=== PATIENT | male | born 1930 | race Caucasian/White ===

== ENCOUNTER → 2016-11-14 | Outpatient (CLI) | payer OTHER ==
[~2016-11-14] MED LIST: ALTACE10 M1 PO; ASCRIPTIN 325325 MG PO; CENTRUM SILVER1 EAC1; FISHOIL; FLEXERIL PO; MUCINEX DM TABL1 TA1 PO; NEW CHOLESTEROL MED; NORCO 7.5-3251 EACH PO; TAMSULOSIN HCL0.4 MG PO; ZOCOR 10 MG TAB10 MG PO
== END ==
LOC: MRI 16:15
DX: M47.892 Other spondylosis, cervical region (principal); M54.2 Cervicalgia

== ENCOUNTER → 2016-11-21 | Outpatient (CLI) | payer OTHER ==
[~2016-11-21] VITALS: Ht 177.8 cm; Wt 84.4 kg
[~2016-11-21] MED LIST changes: +ASPIR 8181 MG PO; +PLAVIX 75 MG TA75 M1 PO; +TRAMADOL 50 MG50 MG PO
--- NOTE | ~2016-11-21 | HPC ---
[facility] [address] [address] PAIN MANAGEMENT CONSULTATION Name: GWEN ADLER Room #: REG [facility] Gamb[facility]alitaVíctorLalita#: [id number] Admission: 11/21/16 Attend Phys: Mellissa Arroyo MD Discharge: Date of : 32 Report #: [id number] THIS REPORT FOR: //name// CC: Mellissa Mckeon MD DATE OF SERVICE: 11/21/2016 DATE OF SERVICE: 11/21/2016. PRIMARY CARE PHYSICIAN: Andre Mckeon MD CHIEF COMPLAINT: Severe neck pain with decreased ability to move the neck over the last few months. HISTORY OF PRESENT ILLNESS: The patient is an 86-year-old gentleman who has been referred to the pain clinic for evaluation of neck pain. The patient states that he has been having pain and discomfort, which has been quite problematic and limits his movement of his neck since June of this year. He has noted a significant decrease in range of motion. He denies any significant trauma. He just notes that over a period since June that his pain has becomes more problematic, range of motion of his neck has become almost nonexistent. He describes the pain worse with movement. Pain is better when he takes pain pills. He rates the pain as a 9/10. He has undergone physical therapy. He has not gleaned a significant amount of improvement in his range of motion and pain continues to live in him to a great extent. He notes pain and difficulty with lifting his head to look up above his head. He is able to look down. Left and right lateral bending, left and right lateral rotation are quite problematic. He has not had surgery in the past. He finds that tramadol has been somewhat beneficial. ALLERGIES: No known drug allergies. MEDICATIONS: Aspirin 81 mg, Plavix 75 mg daily, Mucinex, Zocor 10 mg, fish oil, multivitamin, Centrum, calcium tablet, Flomax 0.4 mg, and Altace 10 mg. PAST MEDICAL HISTORY: Coronary artery disease and peripheral vascular disease. PAST SURGICAL HISTORY: Coronary artery bypass grafting 1979 , crush injury to the right hand, skin cancer excision. FAMILY HISTORY: Mother of stroke. Father with coronary artery disease. Sister, colon cancer, leukemia, had a carotid endarterectomy. Brother, coronary artery disease. [address] [address] PAIN MANAGEMENT CONSULTATION Name: GWEN ADLER Room #: REG [facility]#: [id number] Admission: 11/21/16 Attend Phys: Mellissa Arroyo MD Discharge: Date of : 32 Report #: [id number] SOCIAL HISTORY: Former smoker, stopped in 1996. Denies use of alcohol. REVIEW OF SYSTEMS: A 14-point review of systems questionnaire in the chart indicates he wears glasses, ringing in the ears/hearing loss, shortness of breath with walking, chronic frequent coughs, frequent urination, generally good health. DIAGNOSTIC DATA: MRI of the cervical spine dated 11/14/2016, reveals: 1. Diffuse cervical spondylosis. 2. Disk osteophyte formation, particularly in the left, narrowing and neural foraminal narrowing. 3. 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 4. 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 5. The canal at C4-C5 and C3-C4 at the lower limits of normal. 6. Mild spinal stenosis at C5-C6. 7. Significant bilateral neural foraminal narrowing seen at C5-C6 and C6-C7. 8. Mild subluxation of T1 on T2. PHYSICAL EXAMINATION: VITAL SIGNS: Blood pressure 151/62, pulse 80, respiratory rate 16, room air saturation is 98%. Height 5 feet 10 inches, weight 84 kilograms, and BMI is 26.7. NECK: The patient complains of pain and discomfort in the neck area. He sits in the chair looking straight forward. There is very little rotation or movement of his neck during the interview. Left lateral bending and right lateral bending are almost nonexistent. Left lateral rotation and right lateral rotation are limited to about 15 degrees, left or right. The patient is able to look down into his lap. He is unable to extend his neck and look skyward. He complains of significant pain and discomfort while sitting and with any significant motion of his neck. DIAGNOSES: 1. Cervicalgia with severe spondylosis. 2. Coronary artery disease, treated with Plavix. 3. Peripheral vascular disease. RECOMMENDATIONS: We discussed treatment options with the patient. We will proceed with . Risks and benefits of a cervical epidural steroid injection were discussed. Possible complications were reviewed. The patient is on Plavix. He will hold his Plavix at which time he will return to the pain clinic for cervical epidural steroid injection to note its benefits. We would like to thank you for letting us participate in his care. We hope that [address] [address] PAIN MANAGEMENT CONSULTATION Name: GWEN ADLER [facility]: [facility] [id number] Admission: 11/21/16 Attend Phys: Mellissa Arroyo MD Discharge: Date of : 32 Report #: [id number] he continues to improve from his intractable neck pain, which has significantly and severely altered his ability to engage in activities of daily living. By: [id number] Mellissa Arroyo MD /nt
[2016-11-21 08:40] VITALS: BP 151/62
== END | disposition home or self-care (01) ==
LOC: PAIN 06:32
DX: I25.10 Atherosclerotic heart disease of native coronary artery without angina pectoris (principal); I73.9 Peripheral vascular disease, unspecified; Z95.1 Presence of aortocoronary bypass graft; Z85.828 Personal history of other malignant neoplasm of skin; Z82.49 Family history of ischemic heart disease and other diseases of the circulatory system; Z80.0 Family history of malignant neoplasm of digestive organs; Z87.891 Personal history of nicotine dependence; M47.892 Other spondylosis, cervical region; M25.70 Osteophyte, unspecified joint; M48.02 Spinal stenosis, cervical region

== ENCOUNTER → 2016-11-26 | Outpatient (CLI) | payer OTHER ==
[~2016-11-26] VITALS: Ht 177.8 cm; Wt 85.4 kg
--- NOTE | ~2016-11-26 | H ---
[facility] [place] [place] [address] HISTORY AND PHYSICAL Name: GWEN ADLER Room #: [facility] [id number] Admission: 11/26/16 Attend Phys: Mellissa Arroyo MD Discharge: Date of : 32 Report #: [id number] THIS REPORT FOR: //name// CC: Mellissa Mckeon MD DATE OF SERVICE: 11/26/2016 FOLLOWUP COMPLAINT: Pain in the neck with significant/elizabeth reduction of movement with spondylosis. FOLLOWUP HISTORY: The patient is an 86-year-old gentleman who has been seen in the pain clinic because of severe neck pain. He has very limited movement of his neck with flexion, extension, left and right lateral rotation, left and right lateral bending. This pain has worsened since June of this year. He has undergone physical therapy and continues to have pain, which limits his ability to engage and enjoy life. He has returned today for a cervical epidural steroid injection. He has stopped taking Plavix. He has returned for the procedure. PHYSICAL EXAMINATION: Blood pressure 117/71, pulse 83, respiratory rate 16, room air saturation 98%, height 5 feet 10 inches, weight 85 kg, and BMI is 27. The patient has not fallen since we saw him last. He continues to have pain and discomfort in his neck with significant decreased movement in his neck with pain in the neck with left and right lateral rotation of greater than 15-20 degrees. Cervical extension is nonexistent. Left and right lateral bending is nonexistent. IMPRESSION: Cervical spondylosis with severe cervicalgia. RECOMMENDATION: We again reviewed the patient's history. Risks and benefits of a cervical epidural steroid injection were discussed. Possible complications, which are not limited to infection, increased muscle soreness, worsening of pain, improvement in pain, and bleeding were explained and the patient elects to proceed. PROCEDURE NOTE: The patient was placed in the prone position. Fluoroscopy was used to identify the C7-T1 interspace. This area had been sterilely prepped with Betadine and infiltrated with 0.25% bupivacaine. A total of 120 mg triamcinolone was injected. The patient tolerated the procedure well. He remained in the pain clinic for an appropriate amount of time. He describes his pain as 1-2 at the time of discharge. A total of 20 seconds fluoroscopy time was used. [address] [address] HISTORY AND PHYSICAL Name: GWEN ADLER Room #: REG [facility]#: [id number] Admission: 11/26/16 Attend Phys: Mellissa Arroyo MD Discharge: Date of : 32 Report #: [id number] We would like to thank you for letting us participate in his care. We hope he continues to improve. By: [id number] Mellissa Arroyo MD /nt
[2016-11-26 10:27] VITALS: BP 117/71
== END ==
LOC: PAIN 06:58
DX: M47.22 Other spondylosis with radiculopathy, cervical region (principal); I10 Essential (primary) hypertension

== ENCOUNTER → 2017-01-23 | Outpatient (CLI) | payer OTHER ==
[~2017-01-23] VITALS: Ht 172.7 cm; Wt 84.4 kg
--- NOTE | ~2017-01-23 | HPC ---
[facility] [address] [place] [address] PAIN MANAGEMENT CONSULTATION Name: GWEN ADLER [facility] #: [facility] [id number] Admission: 01/23/17 Attend Phys: Mellissa Arroyo MD Discharge: Date of : 32 Report #: [id number] THIS REPORT FOR: //name// CC: Mellsisa Mckeon MD DATE OF SERVICE: 01/23/2017 FOLLOWUP COMPLAINT: The pain improved after the last injection in the neck by greater than 50% and now it is starting again. FOLLOWUP HISTORY: The patient is an 86-year-old gentleman who has been seen in the pain clinic because of cervical radiculopathy. He gleaned greater than 50% improvement after the first epidural steroid injection. At this juncture, he has noted some worsening of his pain and discomfort. He notes continued limited movement in his neck. Flexion, extension, left and right lateral rotation, left and right lateral bending are still quite problematic. He has undergone physical therapy. He is on Plavix and has stopped this medication with hope of undergoing an epidural steroid injection. PHYSICAL EXAMINATION: Blood pressure 135/57, pulse 88, respiratory rate 15, room air saturation 98%. Height 5 feet 8 inches tall, weight 186 pounds, BMI 28.3. The patient has discomfort and limited movement in his neck with flexion, extension, left and right lateral rotation, left and right lateral bending. He does note some pain radiating down into the shoulders. This pain improved after the last epidural steroid injection. IMPRESSION: Cervical spondylosis with severe cervicalgia with pain radiating down into the shoulders. RECOMMENDATION: The patient received greater than 50% improvement in the cervical epidural steroid injection. He would like to proceed with a second cervical epidural steroid injection. He will stop his Plavix after which a cervical epidural steroid injection will be performed because of the cervical radicular discomfort. We would like to thank you for letting us participate in his care. We hope he continues to improve. <ELECTRONICALLY SIGNED> By: Mellissa Arroyo MD 01/28/17 0845 [id number] Mellissa Arroyo MD /nt
[2017-01-23 09:31] VITALS: BP 135/57
== END | disposition home or self-care (01) ==
LOC: PAIN 07:15
DX: M47.892 Other spondylosis, cervical region (principal); Z88.8 Allergy status to other drugs, medicaments and biological substances; Z79.82 Long term (current) use of aspirin; Z79.899 Other long term (current) drug therapy

== ENCOUNTER → 2017-02-11 | Outpatient (CLI) | payer OTHER | END | disposition home or self-care (01) | LOC: PAIN 07:09 | DX: M47.22 Other spondylosis with radiculopathy, cervical region (principal) ==

== ENCOUNTER → 2017-02-20 | Outpatient (CLI) | payer OTHER ==
[2017-02-20 10:29] LABS: CREATININE 1.1 mg/dL (0.7-1.3)
== END ==
LOC: CAT 09:37
PROVIDERS: Internal Medicine Cardiovascular Disease
DX: I73.9 Peripheral vascular disease, unspecified (principal); I71.4 Abdominal aortic aneurysm, without rupture

== ENCOUNTER → 2017-03-10 | Outpatient (CLI) | payer OTHER ==
--- NOTE | ~2017-03-10 | 2DMMODE ---
[facility] [place] [address] 2 D/M-MODE ECHOCARDIOGRAM Name: GWEN ADLER Room #: REG [facility]#: [id number] Admission: 03/10/17 Attend Phys: Abran Murrell, Discharge: Date of : 32 Date of Service: 03/10/17 1718 Report #: [id number] THIS REPORT FOR: //name// APPROVED REPORT Study performed: 03/10/2017 10:41:31 EXAM: Comprehensive 2D, Doppler, and color-flow Echocardiogram Patient Location: Out-Patient BSA: 1.99 HR: 78 bpm BP: 138/78 mmHg Rhythm: NSR Other Information Study Quality: Adequate Indications Pre-Op. Murmur. Hx: CABG, PVD, HTN 2D Dimensions RVDd: 36.52 mm LVEF(%): 61.03 (>50%) IVSd: 11.29 (7-11mm) LVOT Diam: 21.68 (18-24mm) LVDd: 41.18 mm PWd: 10.70 (7-11mm) Ascending Ao: 33.31 (22-36mm) LVDs: 27.87 (25-40mm) Aortic Root: 34.81 mm Mccoy's LVEF: 61.03 % Volumes Left Atrial Volume (Systole) Single Plane 4CH: 46.19 mL Single Plane 2CH: 46.18 mL LA ESV Index: 25.00 mL/m2 Aortic Valve AoV Peak Eligio.: 3.22 m/s AO Peak Gr.: 41.42 mmHg LVOT Max P.04 mmHg AO Mean Gr.: 25.46 mmHg AO V2 Mean: 2.44 m/s LVOT Max V: 1.00 m/s AO V2 VTI: 68.46 cm LUIS DANIEL Vmax: 1.15 cm2 AI Vmax: 4.09 m/s AI Oldham: 3.13 m/s2 AI PHT: 379.83 ms [facility] [place] [address] 2 D/M-MODE ECHOCARDIOGRAM Name: GWEN ADLER Room #: [facility]#: [id number] Admission: 03/10/17 Attend Phys: Abran Murrell, Discharge: Date of : 32 Date of Service: 03/10/17 1718 Report #: [id number] Mitral Valve E/A Ratio: 0.9 MV Decel. Time: 183.55 ms MV E Max Eligio.: 0.73 m/s MV A Eligio.: 0.81 m/s MV PHT: 53.23 ms IVRT: 76.12 ms Pulmonary Valve PV Peak Eligio.: 1.22 m/s PV Peak Gr.: 5.97 mmHg Pulmonary Vein P Vein S: 0.62 m/s P Vein D: 0.45 m/s P Vein S/D Ratio: 1.38 Tricuspid Valve TR Peak Eligio.: 2.66 m/s RAP Estimate: 5.00 mmHg TR Peak Gr.: 28.20 mmHg PA Pressure: 33.00 mmHg Left Ventricle The left ventricle is normal size. There is normal LV segmental wall motion. There is normal left ventricular wall thickness. Left ventricular systolic function is normal. LVEF is 60-65%. Mild diastolic dysfunction is present (impaired relaxation pattern). Right Ventricle The right ventricle is normal size. The right ventricular systolic function is normal. Atria The left atrium size is normal. The right atrium size is normal. Aortic Valve Aortic valve is moderately thickened and calcified. Mild aortic regurgitation. There is moderate valvular aortic stenosis. Calculated aortic valve area is 1.2 cm2 with maximum pressure gradient of 41mmHg and mean pressure gradient of 25 mmHg. Mitral Valve The mitral valve is normal in structure. Trace mitral regurgitation. [place] [id number] 2 D/M-MODE ECHOCARDIOGRAM Name: GWEN ADLER Gay Room #: [facility]#: [id number] Admission: 03/10/17 Attend Phys: Abran Murrell, Discharge: Date of : 32 Date of Service: 03/10/17 1718 Report #: [id number] Tricuspid Valve The tricuspid valve is normal in structure. Mild to moderate tricuspid regurgitation. Estimated PAP is 33mmHg. Pulmonic Valve The pulmonary valve is normal in structure. Trace pulmonic regurgitation. Great Vessels The aortic root is normal in size. The ascending aorta is normal in size. IVC is normal in size and collapses >50% with inspiration. Pericardium There is no pericardial effusion. <Conclusion> The left ventricle is normal size. Left ventricular systolic function is normal. LVEF is 60-65%. Mild diastolic dysfunction is present (impaired relaxation pattern). The right ventricle is normal size. The left atrium size is normal. Aortic valve is moderately thickened and calcified. Mild aortic regurgitation. There is moderate valvular aortic stenosis. Calculated aortic valve area is 1.2 cm2 with maximum pressure gradient of 41mmHg and mean pressure gradient of 25 mmHg. Trace mitral regurgitation. There is no pericardial effusion. Mild to moderate tricuspid regurgitation. Estimated PAP is 33mmHg. <ELECTRONICALLY SIGNED> By: Abran Murrell MD, FACC 03/10/178 17 17 Abran Murrell MD, FACC /INF
== END ==
LOC: CV 10:36
DX: Z01.818 Encounter for other preprocedural examination (principal); I08.2 Rheumatic disorders of both aortic and tricuspid valves; I50.30 Unspecified diastolic (congestive) heart failure

== ENCOUNTER 2017-03-21 13:19 | Emergency (ER) | payer OTHER ==
[~2017-03-21] VITALS: Ht 175.3 cm; Wt 82.6 kg
--- NOTE | ~2017-03-21 | EKG ---
[place] [address] [facility] [place] [address] ELECTROCARDIOGRAM REPORT Name: GWEN ADLER [facility] #: [facility] [id number] Admission: 03/21/17 Attend Phys: Discharge: 03/21/17 Date of : 32 Report #: [id number] THIS REPORT FOR: //name// [facility] ED Test Date: 2017-03-21 Test Time: 13:23:56 Pat Name: GWEN ADLER Department: Room: Gender: M Senior Process Engineer: [id number] : 1930 Requested By: Jay Hassan Order Number: [id number] MD: Praneeth Tamez Measurements Intervals [place] Rate: 82 P: 29 NM: 219 QRS: 30 QRSD: 161 T: 5 QT: 395 QTc: 462 Interpretive Statements Sinus rhythm Borderline prolonged NM interval Right bundle branch block Compared to ECG 01/29/2007 07:51:05 Right bundle-branch block now present Electronically Signed On 03-22-2017 10:58:28 CDT by Praneeth Tamez [email or web address] <ELECTRONICALLY SIGNED> By: Praneeth Tamez MD, [facility] 03/22/17 1058 22 22 Praneeth Tamez MD, [facility] /EPI
[2017-03-21 13:52] LABS: HEMATOCRIT 34.1 % (42.0-52.0); HEMOGLOBIN 12.2 gm/dL (14.0-18.0); MCH 36.4 pg (26.0-34.0); MCHC 35.8 g/dL (28.0-37.0); MCV 101.8 fL (80.0-100.0); RBC 3.35 mil/uL (4.50-6.00); RDW 12.3 % (10.5-14.5); WBC 7.8 thou/uL (4.0-11.0)
[2017-03-21 13:56] LABS: ANION GAP 5 mmol/L (7-16); BUN 18 mg/dL (7-18); CALCIUM 8.3 mg/dL (8.5-10.1); CHLORIDE 104 mmol/L (98-107); CO2 27 mmol/L (21-32); GLUCOSE 122 mg/dL (74-106); POTASSIUM 4.1 mmol/L (3.5-5.1); SODIUM 136 mmol/L (136-145)
[2017-03-21 14:05] LABS: TROPONIN-I < 0.04 ng/mL (<0.04-0.07)
[2017-03-21 14:39] LABS: URINE BILIRUBIN NEGATIVE (Negative); URINE BLOOD NEGATIVE (Negative); URINE COLOR ORANGE; URINE GLUCOSE-RANDOM* NEGATIVE (Negative); URINE KETONES NEGATIVE (Negative); URINE LEUKOCYTES-REFLEX NEGATIVE (Negative); URINE PROTEIN (DIPSTICK) NEGATIVE (Negative)
== END 2017-03-21 17:25 | disposition home or self-care (01) ==
LOC: ER 13:19
PROVIDERS: Emergency Medicine
DX: R53.1 Weakness (principal); Z88.6 Allergy status to analgesic agent

== ENCOUNTER 2017-03-24 15:02 | Inpatient (IN) | payer OTHER ==
[~2017-03-24] VITALS: Ht 175.3 cm; Wt 83.9 kg
--- NOTE | ~2017-03-24 | HC ---
[facility] [place] [address] [place] [address] CONSULTATION Name: GWEN ADLER Room #: 442-P [facility] [place] ..#: [id number] Admission: 03/25/17 Attend Phys: Edwin Cao MD Discharge: 03/27/17 Date of : 32 Report #: [id number] THIS REPORT FOR: //name// CC: Andre Cao HISTORY OF PRESENT ILLNESS: The patient is an 87-year-old male admitted with some progressive weakness, shortness of breath, some cough for the last 3-4 days and some generalized weakness. I saw him fairly recently in the office and has had stable coronary disease. He has had progression of the right carotid stenosis and we were entertaining a possible intervention, carotid endarterectomy of this. We also thought that there may have been some aortoiliac surgery in the past. There was a CTA that had been obtained on 02/17, which had a 60% stenosis of the celiac, 50% of the mid infrarenal abdominal aorta without evidence of aneurysm or prior surgery, but the carotid stenosis appeared to be in the 90% range. Chronic neck pain and significant apparent cervical stenosis. He has had epidurals, the last of which was 02/11, but he worsened in the last 3-4 days. HOME MEDICATIONS: Baby aspirin, Plavix, fish oil, Multi-Driss, Altace 10, simvastatin 40, ____ tramadol and triamcinolone. PAST MEDICAL HISTORY: Positive for coronary artery disease with prior CABG, catheterization a couple of years ago, had a PAINTER to an LAD intact filling the diagonal and the circumflex and an SVG to a PDA. ____ [place] circulation was occluded. LV function mildly reduced. Skin cancer, DJD, hypertension and hypercholesterolemia. SOCIAL HISTORY: He is , accompanied by ____. He was a former smoker and he did quit in 1996. He never chewed. No alcohol. He is retired. ALLERGIES: PREDNISONE. FAMILY HISTORY: Mother had a stroke and coronary artery disease. Father also had premature CAD. REVIEW OF SYSTEMS: Essentially negative except for some arthritis issues and some nocturia and as stated above. LABORATORY WORK: Potassium 4.2, creatinine 1.2, total protein 6.3, albumin 2.5 and slightly low and alkaline phosphatase 150. For some reason, there was a troponin drawn on March 21, negative. BNP not impressive at 2529. H and H is 11.6 and 33, WBC 6.7 and platelets 181. There is a bandemia at 26%, 11 lymphs and 12 monos. X-rays: His MRI of the head without contrast reveals diffuse moderate chronic atrophy, chronic encephalomalacia. No acute process. Lower extremity venous exam is negative for any clot. Chest x-ray: Poor inspiration and some medial basilar density favoring atelectasis. UA was also [address] [address] CONSULTATION Name: VITOR,GWEN Gay Room #: 442-P [facility] [place] M.R.#: [id number] Admission: 03/25/17 Attend Phys: Edwni Cao MD Discharge: 03/27/17 Date of : 32 Report #: [id number]. PHYSICAL EXAMINATION: GENERAL: He is in no distress, but appears he does not feel well. VITAL SIGNS: Blood pressure 128/50 and pulse 70. HEENT: Eyes reveal no xanthelasmas or arcus senilis. Pharynx is clear. NECK: Shows preserved upstrokes without JVD or bruits. LUNGS: Show prolonged expiratory phase and a few fine crackles in the bases, right greater than left. CARDIOVASCULAR: S1 and S2 distant. ABDOMEN: Minimally tender. Bowel sounds are noted. No rebound. EXTREMITIES: Reveal trace edema. Distal pulses are diminished. NEUROLOGIC: Intact. There are no focal findings. SKIN: Warm and dry without xanthoma. There are no ulcers. ASSESSMENT: 1. Progressive dyspnea consistent with possible bronchitis or infectious etiology. 2. Coronary artery disease with catheterization 2 years prior, PAINTER to LAD, SVG to PDA intact. Collateral filling. 3. Mild ischemic cardiomyopathy. 4. High-grade carotid stenosis, we are scheduled for endarterectomy shortly. 5. Hypertension. 6. Hypercholesterolemia. 7. 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 RECOMMENDATIONS AND PLAN: Agree with the IV antibiotics. I do not perceive there is significant heart failure here. I would continue with his aspirin, Plavix, lisinopril and Lipitor plus or minus on Lasix. Serial x-rays and antibiotics as ordered, ceftriaxone. We will follow with you. I will review the old echo and may want to repeat an echo. We will discuss above with the family. <ELECTRONICALLY SIGNED> By: Abran Murrell MD, FACC 04/01/17 1622 [id number] Abran Murrell MD, FACC /nt
--- NOTE | ~2017-03-24 | H ---
[facility] [place] [address] HISTORY AND PHYSICAL Name: GWEN ADLER Gay Room #: 442-P ADM IN .R.#: [id number] Admission: 03/25/17 Attend Phys: Edwin Cao MD Discharge: Date of : 32 Report #: [id number] THIS REPORT FOR: //name// CC: Andre Cao DATE OF SERVICE: 03/24/2017 CHIEF COMPLAINT: Fever and weakness. HISTORY OF PRESENT ILLNESS: The patient is an 87-year-old male with history of coronary artery disease status post CABG, history of chronic neck pain secondary to cervical spondylosis and cervical radiculopathy, was referred for admission because of generalized weakness. Symptoms have been ongoing over the last couple of weeks. He was seen in the Emergency Room on 03/21. Recently, he has had some cardiac workup including echocardiogram for his weakness. His echocardiogram on 03/10 showed moderate aortic stenosis and normal ejection fraction. 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 His last epidural injection in cervical spine was on 02/11/2017. The patient apparently has had increased cough over the last 1 week. He has mild increased shortness of breath. No sore throat. No chest pain. No dizziness. The patient denies nausea, vomiting, abdominal pain. He has some mild dysuria. The patient denies any rash. The patient denies any recent travel. No other household person has similar illness. He has had generalized weakness over the last couple of weeks. He complains of pain in his bilateral temporal area. PAST MEDICAL HISTORY: Significant for coronary artery disease status post CABG, history of BPH, history of hyperlipidemia, history of asthma, history of abdominal aortic repair, history of right hand surgery, history of hernia repair, history of right common iliac stent placement, history of hypertension, history of gastroesophageal reflux disease. He also has coronary stent. He has a renal stent. He has carotid stenosis and in fact is scheduled for carotid endarterectomy on 04/01/2017. He has peripheral vascular disease as stated in his legs. ALLERGIES: ALLERGIC TO PREDNISONE. Please look at the nursing documentation for reaction. HOME MEDICATIONS: Please look at the nursing documentation. Home medications were reviewed. SOCIAL HISTORY: No smoking, alcohol abuse or illicit drug abuse. [address] [address] HISTORY AND PHYSICAL Name: VITORGWEN Gay Room #: 442-P [facility] IN ..#: [id number] Admission: 03/25/17 Attend Phys: Edwin Cao MD Discharge: Date of : 32 Report #: [id number] FAMILY HISTORY: Significant for hypertension. REVIEW OF SYSTEMS: CONSTITUTIONAL: No weight loss. says that he might have gained some weight. He has had fever. He had a 102 fever in the Emergency Room. EYES: No change in vision. THROAT: Denies any sore throat. CARDIOVASCULAR: As above. RESPIRATORY: Cough with no expectoration. Mild shortness of breath. GASTROINTESTINAL: As above. GENITOURINARY: Mild dysuria, no hematuria. NEUROLOGIC: Complains of generalized weakness. He has also had increasing lower extremity swelling. A 12-point review of system is negative other than the positive and negative dictated in the history of present illness and the review of system. PHYSICAL EXAMINATION: VITAL SIGNS: Reviewed. The patient is afebrile at present. GENERAL: Awake and alert, not in acute respiratory distress, appears generalized weakness. HEENT: Pupils equal, reactive to light. Throat appears normal. No erythema. NECK: Supple. JVD elevated. No bruit, no lymphadenopathy. CARDIOVASCULAR SYSTEM: S1, S2. He had a systolic murmur in the left sternal border. CHEST: Bilateral air entry present. Clear on auscultation. ABDOMEN: Soft, bowel sounds present. No mass, no organomegaly, no tenderness. PERIPHERY: Has a 1 to 2+ edema bilaterally in the lower extremity. Dorsalis pedis feeble bilaterally, warm extremity. NEUROLOGIC: Power is 5/5 in upper extremity, 4/5 in the lower extremity. MUSCULOSKELETAL: No tenderness over the cervical spine noted. He has some tenderness in the bilateral temporal area. LABORATORY DATA: Pending. ASSESSMENT AND PLAN: 1. Febrile illness. The patient will obtain blood culture, urine culture, chest x-ray and labs, CBC and CMP. We will start him on IV ceftriaxone for bronchitis. 2. Cough and lower extremity swelling. We will obtain chest x-ray to rule out any congestive heart failure, also ordered BNP. We will order a venous Doppler of lower extremity to rule out any deep vein thrombosis. We will start him on low-dose Lasix. We will consult Cardiology. 3. History of carotid stenosis, scheduled for carotid endarterectomy on 04/01/2017. 4. History of hypertension, on ramipril which will be continued. [facility] [address] [place] [address] HISTORY AND PHYSICAL Name: GWEN ADLER Room #: 442-P [facility] IN M.R.#: [id number] Admission: 03/25/17 Attend Phys: Edwin Cao MD Discharge: Date of : 32 Report #: [id number] 5. History of coronary artery disease, status post coronary artery bypass grafting, status post stent. 6. Atherosclerotic disease with stents in his leg, in his abdomen and renal vessel. 7. Dyslipidemia, on simvastatin which will be continued. 8. Generalized weakness. We will go ahead and obtain an MRI of the cervical spine, MRI of the brain to rule out any cerebrovascular accident and also may rule out any epidural abscess. He did have an epidural injection on 02/11/2017. 9. Deep venous thrombosis prophylaxis. He will be on sequential compression devices on the legs for deep venous thrombosis prophylaxis. Treatment plan has been explained to the patient and the family in detail. <ELECTRONICALLY SIGNED> By: Edwin Cao MD 03/25/17 1542 1600 1724 Edwin Cao MD /nt
[~2017-03-24 15:02] MED LIST changes: -ALTACE10 M1 PO; +ALTACE10 MG PO; -CENTRUM SILVER1 EAC1; +CENTRUM SILVER1 EAC4 PO; +FISH OIL 1,001000 M2 PO; -FISHOIL
[2017-03-24 16:35] LABS: HEMATOCRIT 33.3 % (42.0-52.0); HEMOGLOBIN 11.6 gm/dL (14.0-18.0); MANUAL DIFF YES; MCH 34.9 pg (26.0-34.0); MCHC 34.7 g/dL (28.0-37.0); MCV 100.5 fL (80.0-100.0); PLATELET COUNT 181 thou/uL (150-400); RBC 3.31 mil/uL (4.50-6.00); RDW 12.4 % (10.5-14.5); WBC 6.7 thou/uL (4.0-11.0)
[2017-03-24 16:38] VITALS: BP 128/37
[2017-03-24 16:46] LABS: CALCIUM 8.7 mg/dL (8.5-10.1); CREATININE 1.2 mg/dL (0.7-1.3); POTASSIUM 4.2 mmol/L (3.5-5.1)
[2017-03-24 16:52] LABS: ALBUMIN 2.5 g/dL (3.4-5.0); MAGNESIUM 1.9 mg/dL (1.8-2.4); TOTAL BILIRUBIN 0.7 mg/dL (<0.1-1.0); TOTAL PROTEIN 6.3 g/dL (6.4-8.2)
[2017-03-24 17:15] LABS: ABSOLUTE NEUTROPHILS 5.2 thou/uL (1.4-8.2); TOTAL CELL COUNT 100
[2017-03-24 17:16] LABS: ANISOCYTOSIS 1+; MICROCYTES 1+; POLYCHROMASIA SLIGHT; TOXIC GRANULATION 1+
[2017-03-24 18:36] LABS: URINE BILIRUBIN NEGATIVE (Negative); URINE BLOOD NEGATIVE (Negative); URINE COLOR YELLOW; URINE GLUCOSE-RANDOM* NEGATIVE (Negative); URINE KETONES NEGATIVE (Negative); URINE LEUKOCYTES-REFLEX NEGATIVE (Negative); URINE PROTEIN (DIPSTICK) TRACE (Negative); URINE SPECIFIC GRAVITY 1.015 (1.003-1.035)
[2017-03-24 21:32] VITALS: BP 113/41
[2017-03-25 00:03] VITALS: BP 106/37
[2017-03-25 05:08] VITALS: BP 81/58
[2017-03-25 06:17] LABS: HEMATOCRIT 28.8 % (42.0-52.0); HEMOGLOBIN 10.1 gm/dL (14.0-18.0); MCH 35.2 pg (26.0-34.0); MCV 100.7 fL (80.0-100.0); PLATELET COUNT 176 thou/uL (150-400); RBC 2.86 mil/uL (4.50-6.00); RDW 12.5 % (10.5-14.5); WBC 7.1 thou/uL (4.0-11.0)
[2017-03-25 06:20] LABS: CALCIUM 8.2 mg/dL (8.5-10.1); CREATININE 1.3 mg/dL (0.7-1.3); MAGNESIUM 1.8 mg/dL (1.8-2.4); POTASSIUM 4.6 mmol/L (3.5-5.1)
[2017-03-25 06:21] LABS: MANUAL DIFF YES
[2017-03-25 08:00] VITALS: BP 104/40
[2017-03-25 09:04] LABS: ATYPICAL LYMPHS 1 %; TOTAL CELL COUNT 100
[2017-03-25 09:05] LABS: ANISOCYTOSIS SLIGHT
[2017-03-25 15:35] VITALS: BP 107/40
[2017-03-25 19:35] VITALS: BP 99/40
[2017-03-26 03:57] LABS: ABSOLUTE NEUTROPHILS 4.4 thou/uL (1.4-8.2); BASOPHILS 0.2 % (0.0-2.0); EOSINOPHILS 1.2 % (0.0-3.0); HEMATOCRIT 28.2 % (42.0-52.0); HEMOGLOBIN 9.9 gm/dL (14.0-18.0); LYMPHOCYTES 19.9 % (24.0-44.0); MCH 35.3 pg (26.0-34.0); MCHC 35.1 g/dL (28.0-37.0); MCV 100.7 fL (80.0-100.0); MONOCYTES 9.8 % (1.0-8.0); PLATELET COUNT 186 thou/uL (150-400); POLYS 68.9 % (36.0-66.0); RDW 12.7 % (10.5-14.5); WBC 6.4 thou/uL (4.0-11.0)
[2017-03-26 04:03] LABS: MANUAL DIFF NO
[2017-03-26 04:40] LABS: CALCIUM 8.3 mg/dL (8.5-10.1); CREATININE 1.1 mg/dL (0.7-1.3); POTASSIUM 4.3 mmol/L (3.5-5.1)
[2017-03-26 04:44] VITALS: BP 106/42
[2017-03-26 08:00] VITALS: BP 118/42
[2017-03-26 13:20] VITALS: BP 116/37
[2017-03-26 16:00] VITALS: BP 108/38
[2017-03-26 19:20] VITALS: BP 116/37
[2017-03-27 05:32] VITALS: BP 122/47
[2017-03-27 06:26] LABS: ABSOLUTE NEUTROPHILS 3.4 thou/uL (1.4-8.2); BASOPHILS 0.4 % (0.0-2.0); EOSINOPHILS 2.4 % (0.0-3.0); HEMATOCRIT 29.2 % (42.0-52.0); HEMOGLOBIN 10.1 gm/dL (14.0-18.0); LYMPHOCYTES 24.3 % (24.0-44.0); MCH 35.3 pg (26.0-34.0); MCHC 34.7 g/dL (28.0-37.0); MCV 101.9 fL (80.0-100.0); MONOCYTES 8.4 % (1.0-8.0); PLATELET COUNT 219 thou/uL (150-400); POLYS 64.5 % (36.0-66.0); RBC 2.87 mil/uL (4.50-6.00); RDW 12.7 % (10.5-14.5); WBC 5.2 thou/uL (4.0-11.0)
[2017-03-27 06:29] LABS: MANUAL DIFF NO
[2017-03-27 06:43] LABS: CALCIUM 8.8 mg/dL (8.5-10.1); POTASSIUM 4.5 mmol/L (3.5-5.1)
[2017-03-27 07:54] VITALS: BP 122/55
[2017-03-27] MEDS ORDERED: CEFUROXIME500 MG PO (10:12)
[2017-03-27] MEDS ORDERED: ROBITUSSIN COU237 M2 PO (10:12)
[2017-03-27] MEDS ORDERED: AZITHROMYCIN 2250 MG PO (10:12)
[2017-03-27] MEDS ORDERED: CLARITIN10 MG PO (12:22)
[2017-03-27 12:52] VITALS: BP 122/55
[2017-04-01] MEDS ORDERED: CEFUROXIME500 MG PO (14:34)
[2017-04-01] MEDS ORDERED: CLARITIN10 MG PO (14:35)
[2017-04-01] MEDS ORDERED: PLAVIX 75 MG TA75 M1 PO (14:35)
== END 2017-03-27 13:54 | disposition home health service (06) | DRG 871 ==
LOC: 4S 15:02 → ENTRNSPT 03-27 13:44 → EDTRNSPTSTS 03-27 13:46 → 4S 03-27 13:54
PROVIDERS: Internal Medicine; Nurse Practitioner
DX: A41.9 Sepsis, unspecified organism (principal); J18.9 Pneumonia, unspecified organism; E43 Unspecified severe protein-calorie malnutrition; J40 Bronchitis, not specified as acute or chronic; I25.10 Atherosclerotic heart disease of native coronary artery without angina pectoris; I25.5 Ischemic cardiomyopathy; I73.9 Peripheral vascular disease, unspecified; K21.9 Gastro-esophageal reflux disease without esophagitis; J32.9 Chronic sinusitis, unspecified; N40.0 Benign prostatic hyperplasia without lower urinary tract symptoms; I35.0 Nonrheumatic aortic (valve) stenosis; M19.90 Unspecified osteoarthritis, unspecified site; I10 Essential (primary) hypertension; E78.00 Pure hypercholesterolemia, unspecified; Z95.1 Presence of aortocoronary bypass graft; Z85.828 Personal history of other malignant neoplasm of skin; Z87.891 Personal history of nicotine dependence; Z79.02 Long term (current) use of antithrombotics/antiplatelets; Z79.82 Long term (current) use of aspirin; Z79.899 Other long term (current) drug therapy; Z88.8 Allergy status to other drugs, medicaments and biological substances; Z95.820 Peripheral vascular angioplasty status with implants and grafts; Z82.3 Family history of stroke; Z82.49 Family history of ischemic heart disease and other diseases of the circulatory system; Z23 Encounter for immunization
CPT/HCPCS: 10102

== ENCOUNTER → 2017-06-12 | Outpatient (CLI) | payer OTHER ==
[~2017-06-12] MED LIST changes: +AZITHROMYCIN 2250 MG PO; +CEFUROXIME500 MG PO; +CLARITIN10 MG PO; +NORCO 5-325 TA1 EACH PO; +ROBITUSSIN COU237 M2 PO
== END ==
LOC: RAD 11:19
DX: J38.01 Paralysis of vocal cords and larynx, unilateral (principal)

== ENCOUNTER 2019-05-15 13:50 | Inpatient (IN) | payer OTHER ==
[~2019-05-15] VITALS: Ht 175.3 cm; Wt 82.1 kg
[2019-05-15 13:50] VITALS: BP 95/32
[2019-05-15 14:17] LABS: URINE BILIRUBIN NEGATIVE (Negative); URINE BLOOD NEGATIVE (Negative); URINE CLARITY CLEAR; URINE COLOR YELLOW; URINE GLUCOSE-RANDOM* NEGATIVE (Negative); URINE KETONES NEGATIVE (Negative); URINE LEUKOCYTES-REFLEX NEGATIVE (Negative); URINE NITRITE-REFLEX NEGATIVE (Negative); URINE PROTEIN (DIPSTICK) NEGATIVE (Negative); URINE SPECIFIC GRAVITY <= 1.005 (1.005-1.035); URINE UROBILINOGEN 0.2 E.U./dl (0.2-1.0)
[2019-05-15 14:41] LABS: ABSOLUTE NEUTROPHILS 4.2 thou/uL (1.4-8.2); BASOPHILS 0.7 % (0.0-2.0); HEMATOCRIT 40.9 % (42.0-52.0); HEMOGLOBIN 14.1 gm/dL (14.0-18.0); LYMPHOCYTES 24.9 % (24.0-44.0); MCH 34.1 pg (26.0-34.0); MCHC 34.4 g/dL (28.0-37.0); MCV 99.2 fL (80.0-100.0); MONOCYTES 9.9 % (1.0-8.0); PLATELET COUNT 214 thou/uL (150-400); POLYS 63.5 % (36.0-66.0); RBC 4.12 mil/uL (4.50-6.00); RDW 11.9 % (10.5-14.5); WBC 6.7 thou/uL (4.0-11.0)
[2019-05-15 14:49] LABS: POTASSIUM 4.5 mmol/L (3.5-5.1)
[2019-05-15 16:22] VITALS: BP 142/51
--- NOTE | 2019-05-15 17:57 | NUR ---
Resumed care at 1710. PT arrived from ED to 444 via cart with spouse at bedside. PT ambulated from cart to bed with x1 ast and he tolerated activity well. PT reports abdominal pain when moving but none at rest. VSS. PT is A&Ox4. PT recieved a full liquid dinner tray. PT is currently sitting up in bed eating dinner with at bedside. Call light is within reach. Nurse will continue to monitor.
--- NOTE | 2019-05-15 19:28 | NUR ---
PT ADMITTED AT 1730 PT ALERT XS 4 SPOUSE WITH PATIENT. ADMISSION COMPLETED. SEE CHART. DR ZEPEDA HERE TO SEE PATIENT. FLUIDS INFUSING ORDERED.
[2019-05-15 19:50] VITALS: BP 149/50
--- NOTE | 2019-05-16 02:55 | NUR ---
PATIENT ASSESSED AND IS ALERT X 4. SKIN WARM AND DRY. RESP EVEN AND UNLABORED. VOIDS PER URINAL. CAN GET WITH 1 PERSON ASSIST TO BATHROOM WITH WALKER AND GAIT BELT. LUNGS CTA. ON ROOM AIR. DENIES ANY PAIN OR SOA. ABDOMEN SOFT WITH +BS. NO EDEMA NOTED TO LOWER EXTREMITIES. PAIN IN RIGHT HIP BUT DID NOT ASK FOR PAIN MED. IV SITE HEALTHY WITH FLUIDS INFUSING. REMAINS A FALL RISK. CONT PLAN OF CARE.
[2019-05-16 03:20] VITALS: BP 138/45
[2019-05-16 08:02] VITALS: BP 154/62
[2019-05-16 09:28] LABS: HEMATOCRIT 39.1 % (42.0-52.0); HEMOGLOBIN 13.3 gm/dL (14.0-18.0); MCHC 34.1 g/dL (28.0-37.0); MCV 99.7 fL (80.0-100.0); RBC 3.92 mil/uL (4.50-6.00); RDW 12.7 % (10.5-14.5); WBC 5.2 thou/uL (4.0-11.0)
--- NOTE | 2019-05-16 10:53 | NUR ---
CALLED CONSULT TO DR BLAKE SUH JOB SERVICE CONSULTANT WILL SEE PATIENT.
--- NOTE | 2019-05-16 12:17 | NUR ---
CALLED DR DAVEY AND RECIEVED ORDER TO DC FLUIDS. ALSO PATIENT NEEDS TO GET UP AND WALK.
--- NOTE | 2019-05-16 14:14 | NUR ---
ASSESSMENT-PT LIVES AT HOME WITH HIS . HE NORMALLY WALKS ON HIS OWN AN DOES HIS OW ADLS. HE DRIVES. HIS IS 84 YEARS OLD BUT IS STILL RECOVERING FROM A FALL EARLIER IN THE YEAR WHERE SHE BROKE HER TAILBONE AND PELVIS. THEY HAVE 2 SONS IN THE AREA - [place] AND LESS [place]. PT SAYS HE IS ABLE TO GET UP AND WALK AROUND TODAY BUT IS NOT SURE WHAT CAUSED HIS EXTREME PAIN YESTERDAY. PT VOICES NO CONCERNS RELATED TO DC HOME.
[2019-05-16] MEDS ORDERED: VOLTAREN GEL 1100 G2 TOP (16:16)
[2019-05-16 16:24] VITALS: BP 154/62
--- NOTE | 2019-05-16 16:46 | NUR ---
DISCHARGE PAPERS GONE OVER WITH PATIENT SIGNED AND COPY IN CHART. IV ACSESS DCD, PAIN CREAM SENT WITH PATIENT. ALL BELONGINGS PACKED AND SENT WITH PATIENT NO PAIN OT RESP DISTRESS AT DISCHRGE.
[2019-05-16 17:01] VITALS: BP 154/62
== END 2019-05-16 17:03 | disposition home or self-care (01) | DRG 552 ==
LOC: ER 13:50 → EROBS 15:57 → 4S 15:57 → ENTRNSPT 05-16 16:40 → 4S 05-16 17:03
PROVIDERS: Emergency Medicine; Surgery; ADMIT Hospitalist
DX: M47.816 Spondylosis without myelopathy or radiculopathy, lumbar region (principal); K37 Unspecified appendicitis; I10 Essential (primary) hypertension; I25.10 Atherosclerotic heart disease of native coronary artery without angina pectoris; E78.5 Hyperlipidemia, unspecified; M16.11 Unilateral primary osteoarthritis, right hip; E78.00 Pure hypercholesterolemia, unspecified; K21.9 Gastro-esophageal reflux disease without esophagitis; N40.0 Benign prostatic hyperplasia without lower urinary tract symptoms; Z88.8 Allergy status to other drugs, medicaments and biological substances; Z95.1 Presence of aortocoronary bypass graft; M47.818 Spondylosis without myelopathy or radiculopathy, sacral and sacrococcygeal region
CPT/HCPCS: 10195

== ENCOUNTER → 2019-10-05 | Outpatient (CLI) | payer OTHER ==
[~2019-10-05] MED LIST changes: +VOLTAREN GEL 1100 G2 TOP
== END ==
LOC: SJCVCIMAG 09:47
DX: I08.3 Combined rheumatic disorders of mitral, aortic and tricuspid valves (principal); I77.810 Thoracic aortic ectasia; I73.9 Peripheral vascular disease, unspecified; I70.0 Atherosclerosis of aorta; I65.22 Occlusion and stenosis of left carotid artery; I45.10 Unspecified right bundle-branch block; I44.0 Atrioventricular block, first degree; R94.31 Abnormal electrocardiogram [ECG] [EKG]; I25.810 Atherosclerosis of coronary artery bypass graft(s) without angina pectoris; E78.00 Pure hypercholesterolemia, unspecified; I10 Essential (primary) hypertension; I77.1 Stricture of artery; M25.551 Pain in right hip; Z98.890 Other specified postprocedural states; Z95.1 Presence of aortocoronary bypass graft; Z79.82 Long term (current) use of aspirin; Z79.899 Other long term (current) drug therapy; Z82.49 Family history of ischemic heart disease and other diseases of the circulatory system

== ENCOUNTER 2019-10-11 09:51 | Observation (INO) | payer OTHER ==
[~2019-10-11] VITALS: Ht 175.3 cm; Wt 79.4 kg
[2019-10-11] VITALS (9 sets, daily range): BP systolic 133–153; BP diastolic 49–62
--- NOTE | ~2019-10-11 | D ---
[facility] [place] [address] DISCHARGE SUMMARY Name: GWEN ADLER Room #: 215-P [facility] MLalitaRLalita#: [id number] Admission: 10/11/19 Attend Phys: Abran Murrell MD, Discharge: Date of : 32 Report #: [id number] THIS REPORT FOR: cc: Andre Mckeon MD, Rene P. MD ~ THIS REPORT FOR: //name// CC: [facility]an [facility] COURSE: The patient is an 89-year-old male who was admitted for some progressive lower extremity weakness. We have found a noninvasively high-grade aortic stenosis above the prior aortobifemoral graft that was placed in 1987 initially. He also had prior bypass surgery with some questionable anginal complaints. He was taken to the catheterization lab, which revealed the PAINTER to LAD to be intact with mild disease filling the diagonal system and also filling the proximal circ OM. The SVG to the OM was occluded. The SVG to the diagonal was occluded. There was also an SVG to a PDA, which was intact with a jump graft and appeared to the posterior lateral branch and so the PDA, AMANDA and the distal OM branch were all filled via this graft. The patient had preserved LV function. There is no indication for intervention here. Dr. Vaughan then intervened into the abdominal aorta and placed a covered stent in that small segment proximal to the prior graft. This was an 11 x 39 [place] VBX stent graft and subsequently dilated to 15 cm. The patient tolerated well. He is up and ambulating. His laboratory work is stable this morning. Creatinine was 1.0. He will be discharged. We will discontinue the aspirin, but would go with Plavix for this new stent graft; metoprolol 25, simvastatin 40, Multi-Driss, his fish oil, and Cymbalta. No lifting for 48 hours. No lying in tub, Jacuzzi or galloway for a week. No MRI or dental work for 3 months. Followup is scheduled in 3 months in our office with abdominal ultrasound. Follow up with myself and Dr. Vaughan. His coronary anatomy is stable as above. He does have 2 grafts occluded, but these areas are filled in via the 2 patent grafts and collateral filling. There is no indication for coronary intervention. DISCHARGE DIAGNOSES: 1. Abdominal aortic stenosis repaired via a covered stent graft percutaneously by Dr. Vaughan. 2. Coronary artery disease with prior bypass and catheterization yesterday. See the above note. 3. Hypertension. 4. Hypercholesterolemia. 5. Degenerative joint disease. 6. Status post aortic aneurysm open repair in 1987. 7. Mild aortic valve stenosis. [address] [address] DISCHARGE SUMMARY Name: GWEN ADLER Gay Room #: 215-P [facility] Tamia Henry#: [id number] Admission: 10/11/19 Attend Phys: Abran Murrell MD, Discharge: Date of : 32 Report #: [id number] Thank you for allowing us to assist in the care of this patient. By: 1003 1033 /nt
[2019-10-11 10:42] LABS: HEMATOCRIT 41.2 % (42.0-52.0); HEMOGLOBIN 14.2 gm/dL (14.0-18.0); MCH 34.7 pg (26.0-34.0); MCHC 34.4 g/dL (28.0-37.0); MCV 100.9 fL (80.0-100.0); RBC 4.08 mil/uL (4.50-6.00); RDW 12.7 % (10.5-14.5); WBC 5.5 thou/uL (4.0-11.0)
[2019-10-11 10:50] LABS: CALCIUM 8.2 mg/dL (8.5-10.1); CREATININE 1.1 mg/dL (0.7-1.3); POTASSIUM 4.8 mmol/L (3.5-5.1)
--- NOTE | 2019-10-11 10:54 | EKG ---
[facility] [place] [address] ELECTROCARDIOGRAM REPORT Name: GWEN ADLER Room #: [facility].#: [id number] Admission: 10/11/19 Attend Phys: Abran Murrell MD, Discharge: Date of : 32 Report #: [id number] THIS REPORT FOR: cc: Andre Mckeon MD, Rene P. MD Couchonnal, Luis F. MD ~ THIS REPORT FOR: //name// [facility] Test Date: 2019-10-11 Test Time: 10:30:18 Pat Name: GWEN ADLER Department: Room: Gender: Osd Clerk: [facility] : 1930 Requested By: Abran Murrell Order Number: [id number] MD: Dale Christianson Measurements Intervals [place] Rate: 71 P: 40 MS: 262 QRS: 41 QRSD: 167 T: 17 QT: 438 QTc: 476 Interpretive Statements Sinus rhythm Prolonged MS interval Right bundle branch block Compared to ECG 03/21/2017 13:23:56 No significant changes Electronically Signed On 10-11-2019 10:53:03 CDT by Dale Christianson [email or web address] <ELECTRONICALLY SIGNED> By: Dale Christianson MD 10/11/19 1053 1030 1030 Dale Christianson MD /EPI
[2019-10-11] MEDS ORDERED: TOPROL XL25 MG PO (11:01)
[2019-10-11] MEDS ORDERED: ZOCOR40 MG PO (11:03)
[2019-10-11] MEDS ORDERED: FISH OIL 1,0001 EAC9 PO (11:04)
[2019-10-11] MEDS ORDERED: DULOXETINE HCL30 MG PO (11:04)
--- NOTE | 2019-10-11 16:48 | NUR ---
PT CARE ASSUMED APPROX 1530. PT POST AORTAGRAM. RIGHT GROIN POST CATH SITE C/D/I AND NEGATIVE FOR HEMATOMA. POST CATH VSS. GAIT UNASSESSED AT THIS TIME D/T POST PROCEDURE BEDREST. IVF INFUSING PER ORDER. PT DENIES QUESTIONS OR CONCERNS REGARDING POC. NO DISTRESS NOTED.
--- NOTE | 2019-10-11 17:30 | CATHLAB ---
[facility] [place] [address] INVASIVE PROCEDURE REPORT Name: GWEN ADLER Room #: 215-P [facility] Tamia Henry#: [id number] Admission: 10/11/19 Attend Phys: Abran Murrell MD, Discharge: Date of : 32 Report #: [id number] THIS REPORT FOR: cc: Andre Mckeon MD, Rene P. MD Mancuso, Gerald M. MD [facility] ~ APPROVED REPORT Study performed: 10/11/2019 13:48:05 Patient Details Patient Status: Out-Patient Room #: The patient is a 89 year-old male Event Personnel Abran Murrell Flue Dust Laborer, Noelle Johnson RTR Monitor, Niecy Burgess RTR ScrubOlimpia Wes RN Procedures Performed Left Heart Cath Coronaries, Bypass Grafts [id number] LHCCORCABG Art Access - R femoral artery* 68120 Initial Mod Sed Same Phys/QHP Gr5y 644889 71260 Mod Sed Same Phys/QHP Ea 924978 Hemostasis w/ Mynx Indication Chest pain Procedure Narrative The patient was brought electively to the Cardiac Catheterization Laboratory and was prepped and draped in a sterile manner. A 8F 35CM BRITE-TIP sheath was inserted into the RFA^. Coronary angiography was performed using coronary diagnostic catheters. The right coronary system was accessed and visualized with a 6FR RCB AND JR4 catheter. The left coronary system was accessed and visualized with a JL4 catheter. The left ventricle was accessed and visualized with a PIGTAIL catheter. The patient tolerated the procedure well and there were no complications associated with the procedure. There was no hematoma. Intraoperative Conscious Sedation Sedation start time: 14:03 Case end Time: 14:54 Fentanyl 150 mcg Versed 3 mg [facility] [place] [address] INVASIVE PROCEDURE REPORT Name: GWEN ADLER Room #: [facility]#: [id number] Admission: 10/11/19 Attend Phys: Abran Murrell, Discharge: Date of : 32 Report #: [id number] Fluoro Time: 18.20 minutes Dose: DAP 91248.50 cGycm2 2048 mGy Contrast Type and Amount: Visipaque 141 ml Hemodynamics The aortic pressure is 122/42 mmHg with a mean of 61 mmHg. The left ventricular pressure is 171/13 mmHg with a mean of mmHg. The left ventricular end diastolic pressure is 24 mmHg. PCI Technique Lesion Percutaneous coronary intervention was performed on the Unspecified. Conclusion #1. Normal left ventricular size and systolic function EF 60% #2 left main is totally occluded catawba left system occluded #3 the catawba right coronary arteries proximally occluded #4 the PAINTER to LAD is large and intact recently filling the LAD retrograde filling the diagonal system and some filling of the first OM branch of the circumflex. All mildly diseased. #5 SVG to diagonal occluded the diagonal branch is filled via the PAINTER to the LAD retrograde fill #6 SVG to OM occluded #7 there is an SVG which is mild to moderately diseased filling a PDA with a jump graft to the distal OM and this remains patent a moderate OM branch is widely patent. The proximal OM is filled via retrograde filling through the PAINTER graft Recommendations and plan: Continue aggressive risk factor modification there is no indication for coronary intervention. Close follow-up will be maintained. He had a mid abdominal aortic stenosis high-grade mid vessel aorta proximal to the aortobifem repair graft see Dr. Vaughan dictation <ELECTRONICALLY SIGNED> By: Abran Murrell MD, FACC 10/11/191727 27 27 Abran Murrell MD, FACC /INF
--- NOTE | 2019-10-11 18:33 | NUR ---
DRIED DRAINAGE NOTED TO RIGHT GROIN DSG. IT'S A SCANT AMOUNT THAT HAS NOT INCREASED SINCE SEEN AT 1730. NO HEMATOMA NOTED. VSS.
[2019-10-12 00:22] VITALS: BP 134/52
[2019-10-12 05:12] LABS: HEMATOCRIT 36.7 % (42.0-52.0); HEMOGLOBIN 13.1 gm/dL (14.0-18.0); MCH 35.6 pg (26.0-34.0); MCHC 35.7 g/dL (28.0-37.0); MCV 99.6 fL (80.0-100.0); RBC 3.68 mil/uL (4.50-6.00); RDW 12.9 % (10.5-14.5); WBC 6.3 thou/uL (4.0-11.0)
[2019-10-12 05:35] VITALS: BP 145/58
[2019-10-12 05:36] LABS: CALCIUM 8.1 mg/dL (8.5-10.1); CREATININE 1.1 mg/dL (0.7-1.3); POTASSIUM 4.5 mmol/L (3.5-5.1)
--- NOTE | 2019-10-12 06:46 | NUR ---
PT A&O X4 ABLE TO MAKE NEEDS KNOWN. DENIES PAIN. POST CARDIAC CATH. RIGHT GROIN ACCESS SITE CDI. NO ACUTE FINDINGS THIS SHIFT
[2019-10-12 07:30] VITALS: BP 136/50
[2019-10-12] MEDS ORDERED: CLOPIDOGREL75 MG PO (07:40)
--- NOTE | 2019-10-12 09:02 | NUR ---
PT ALERT AND ORIENTED TIMES FOUR. VSS, SR ON TELE. PT DENIES PAIN/SOA. PT TOLERATED MEDS AND BREAKFAST. PT WALKED AROUND THE UNIT WITH STAFF, NO ISSUES NOTED. PLANS FOR DISCHARGE TODAY.
[2019-10-12 10:16] VITALS: BP 136/50
== END 2019-10-12 10:00 | disposition home or self-care (01) ==
LOC: CATH 09:51 → 2N 16:21
PROVIDERS: ADMIT Internal Medicine Cardiovascular Disease
DX: I35.0 Nonrheumatic aortic (valve) stenosis (principal); I10 Essential (primary) hypertension; E78.00 Pure hypercholesterolemia, unspecified; M19.90 Unspecified osteoarthritis, unspecified site; I25.10 Atherosclerotic heart disease of native coronary artery without angina pectoris; E78.5 Hyperlipidemia, unspecified; I73.9 Peripheral vascular disease, unspecified; I71.4 Abdominal aortic aneurysm, without rupture

== ENCOUNTER → 2020-02-17 | Outpatient (CLI) | payer OTHER ==
[~2020-02-17] MED LIST changes: +CLOPIDOGREL75 MG PO; +DULOXETINE HCL30 MG PO; +FISH OIL 1,0001 EAC9 PO; +TOPROL XL25 MG PO; +ZOCOR40 MG PO
== END ==
LOC: SJCVCIMAG 08:16
PROVIDERS: ATTEND Nuclear Medicine Nuclear Cardiology
DX: I73.9 Peripheral vascular disease, unspecified (principal); I70.1 Atherosclerosis of renal artery; I25.10 Atherosclerotic heart disease of native coronary artery without angina pectoris; I71.4 Abdominal aortic aneurysm, without rupture; E78.00 Pure hypercholesterolemia, unspecified; I35.0 Nonrheumatic aortic (valve) stenosis

== ENCOUNTER 2020-04-05 16:25 | Emergency (ER) | payer OTHER ==
[~2020-04-05] VITALS: Ht 175.3 cm; Wt 85.3 kg
[2020-04-05 17:08] LABS: HEMATOCRIT 39.8 % (42.0-52.0); HEMOGLOBIN 13.6 gm/dL (14.0-18.0); MCH 34.2 pg (26.0-34.0); MCHC 34.1 g/dL (28.0-37.0); MCV 100.1 fL (80.0-100.0); PLATELET COUNT 209 thou/uL (150-400); RBC 3.98 mil/uL (4.50-6.00); RDW 12.3 % (10.5-14.5); WBC 4.8 thou/uL (4.0-11.0)
[2020-04-05 17:15] LABS: ANION GAP 4 mmol/L (7-16); BUN 15 mg/dL (7-18); CALCIUM 8.4 mg/dL (8.5-10.1); CHLORIDE 106 mmol/L (98-107); CO2 31 mmol/L (21-32); CREATININE 0.9 mg/dL (0.7-1.3); GLUCOSE 129 mg/dL (74-106); POTASSIUM 4.5 mmol/L (3.5-5.1); SODIUM 141 mmol/L (136-145)
[2020-04-05 17:30] LABS: ABSOLUTE NEUTROPHILS 2.9 thou/uL (1.4-8.2); ANISOCYTOSIS 1+; MACROCYTES 1+; POLYCHROMASIA OCCASIONAL
[2020-04-05 17:53] LABS: TROPONIN-I <0.06 ng/mL (<0.06)
[2020-04-05 18:20] VITALS: BP 150/60
[2020-04-05] MEDS ORDERED: PEPCID20 MG PO (18:20)
--- NOTE | 2020-04-06 07:05 | EKG ---
[facility] [place] [address] ELECTROCARDIOGRAM REPORT Name: GWEN ADLER Room #: [facility]#: [id number] Admission: 04/05/20 Attend Phys: Discharge: 04/05/20 Date of : 32 Report #: [id number] THIS REPORT FOR: cc: Andre Mckeon MD, Rene P. MD Santiago, Patrick MD [facility] ~ THIS REPORT FOR: //name// [facility] ED Test Date: 2020-04-05 Test Time: 16:29:01 Pat Name: GWEN ADLER Department: Room: Gender: Manager Merchandising: JAYCEE : 1930 Requested By: Jay Hassan Order Number: [id number] MD: Aba Lawson Measurements Intervals [place] Rate: 66 P: 18 [place]: 238 QRS: 53 QRSD: 178 T: 27 QT: 462 QTc: 485 Interpretive Statements Sinus rhythm Prolonged [place] interval Right bundle branch block Compared to ECG 10/11/2019 10:30:18 No significant changes Electronically Signed On 04-06-2020 7:05:44 CDT by Aba Lawson [email or web address] <ELECTRONICALLY SIGNED> By: Aba Lawson MD, FACC 04/06/20 0705 1629 1629 Aba Lawson MD, [facility] /EPI
== END 2020-04-05 18:20 | disposition home or self-care (01) ==
LOC: ER 16:25
PROVIDERS: Emergency Medicine
DX: R07.89 Other chest pain (principal); I10 Essential (primary) hypertension; K21.9 Gastro-esophageal reflux disease without esophagitis; E78.5 Hyperlipidemia, unspecified; I25.10 Atherosclerotic heart disease of native coronary artery without angina pectoris; Z95.1 Presence of aortocoronary bypass graft; Z87.891 Personal history of nicotine dependence; Z79.01 Long term (current) use of anticoagulants; Z79.899 Other long term (current) drug therapy; Z88.8 Allergy status to other drugs, medicaments and biological substances

== ENCOUNTER → 2020-04-11 | Outpatient (CLI) | payer OTHER ==
[~2020-04-11] MED LIST changes: +PEPCID20 MG PO
== END ==
LOC: SJCVC 09:41
PROVIDERS: ATTEND Internal Medicine Cardiovascular Disease
DX: R94.31 Abnormal electrocardiogram [ECG] [EKG] (principal); I25.10 Atherosclerotic heart disease of native coronary artery without angina pectoris; I35.0 Nonrheumatic aortic (valve) stenosis; I45.10 Unspecified right bundle-branch block; I10 Essential (primary) hypertension; E78.00 Pure hypercholesterolemia, unspecified; I77.9 Disorder of arteries and arterioles, unspecified; I73.9 Peripheral vascular disease, unspecified; I71.4 Abdominal aortic aneurysm, without rupture; K21.9 Gastro-esophageal reflux disease without esophagitis

== ENCOUNTER → 2020-10-02 | Outpatient (CLI) | payer OTHER | LOC: SJCVCIMAG 08:12 | PROVIDERS: ATTEND Internal Medicine Cardiovascular Disease | DX: I08.2 Rheumatic disorders of both aortic and tricuspid valves (principal); I65.23 Occlusion and stenosis of bilateral carotid arteries; R94.31 Abnormal electrocardiogram [ECG] [EKG]; I11.9 Hypertensive heart disease without heart failure; I45.2 Bifascicular block; T82.858A Stenosis of other vascular prosthetic devices, implants and grafts, initial encounter; E78.00 Pure hypercholesterolemia, unspecified; I70.1 Atherosclerosis of renal artery; I73.9 Peripheral vascular disease, unspecified; I77.9 Disorder of arteries and arterioles, unspecified; I71.4 Abdominal aortic aneurysm, without rupture; I25.810 Atherosclerosis of coronary artery bypass graft(s) without angina pectoris; Z95.828 Presence of other vascular implants and grafts; Z95.1 Presence of aortocoronary bypass graft; Z88.8 Allergy status to other drugs, medicaments and biological substances; Z79.899 Other long term (current) drug therapy; Z87.891 Personal history of nicotine dependence; Z82.49 Family history of ischemic heart disease and other diseases of the circulatory system; Y83.8 Other surgical procedures as the cause of abnormal reaction of the patient, or of later complication, without mention of misadventure at the time of the procedure; Y92.89 Other specified places as the place of occurrence of the external cause ==

== ENCOUNTER → 2021-03-27 | Outpatient (CLI) | payer OTHER ==
[~2021-03-27] MED LIST changes: +FLOMAX0.4 MG PO
== END ==
LOC: SJCVCIMAG 07:29
PROVIDERS: ATTEND Nuclear Medicine Nuclear Cardiology
DX: R94.31 Abnormal electrocardiogram [ECG] [EKG] (principal); I70.203 Unspecified atherosclerosis of native arteries of extremities, bilateral legs; I45.2 Bifascicular block; I44.0 Atrioventricular block, first degree; I35.0 Nonrheumatic aortic (valve) stenosis; I25.810 Atherosclerosis of coronary artery bypass graft(s) without angina pectoris; I10 Essential (primary) hypertension; I71.4 Abdominal aortic aneurysm, without rupture; I70.1 Atherosclerosis of renal artery; E78.00 Pure hypercholesterolemia, unspecified; I77.9 Disorder of arteries and arterioles, unspecified; R06.00 Dyspnea, unspecified; Z87.891 Personal history of nicotine dependence; Z79.899 Other long term (current) drug therapy; Z88.8 Allergy status to other drugs, medicaments and biological substances

== ENCOUNTER 2021-04-09 07:48 | Observation (INO) | payer OTHER ==
[~2021-04-09] VITALS: Ht 175.3 cm; Wt 84.3 kg
[~2021-04-09 07:48] MED LIST changes: -FLOMAX0.4 MG PO
[2021-04-09 08:16] VITALS: BP 152/54
[2021-04-09 08:25] LABS: HEMATOCRIT 43.8 % (42.0-52.0); HEMOGLOBIN 14.7 gm/dL (14.0-18.0); MCH 34.2 pg (26.0-34.0); MCHC 33.7 g/dL (28.0-37.0); MCV 101.6 fL (80.0-100.0); RBC 4.31 mil/uL (4.50-6.00); RDW 12.4 % (10.5-14.5); WBC 7.2 thou/uL (4.0-11.0)
[2021-04-09 08:34] LABS: CALCIUM 8.8 mg/dL (8.5-10.1); CREATININE 1.1 mg/dL (0.7-1.3); POTASSIUM 4.5 mmol/L (3.5-5.1)
[2021-04-09] MEDS ORDERED: FLOMAX0.4 MG PO (08:43)
[2021-04-09 15:54] VITALS: BP 148/57
[2021-04-09 16:30] VITALS: BP 127/59
--- NOTE | 2021-04-09 18:09 | NUR ---
RECEIVED PT FROM [facility] [employer] POST LERO/CATH. PT IS AXOX4, PLEASANT. VSS, AFEBRILE, SR ON THE MONITOR. R GROIN MYNX DRESSING, C/D/I, NO HEMATOMA. ADMISSION COMPLETED. PT STATES HE IS STEADY ON FEET, SBA TO TOILET. POC IS TO CONTINUE TO MONITOR GROIN SITE. LOW FALL PRECAUTIONS IN PLACE. POSS D/C TOMORROW. NO CONCERNS AT THIS TIME.
[2021-04-09 20:00] VITALS: BP 132/42
--- NOTE | 2021-04-10 02:32 | NUR ---
PT IS ALERT AND ORIENTED X4. LUNGS ARE CLEAR ABDOMEN IS SOFT AND FLAT. BOWEL SOUNDS ACTIVE X4. RIGHT GROIN MYNX CLEAN DRY AND INTACT NO HEMATOMA NOTED. DENIES ANY COMPLAINTS OF PAIN NOTED. CALL LIGHT WITHIN REACH IF NEEDS ASSISTANCE PER NURSING. NO ISSUES OR CONCERNS NOTED
[2021-04-10 04:41] VITALS: BP 140/57
[2021-04-10 05:23] LABS: HEMATOCRIT 37.8 % (42.0-52.0); MCH 34.7 pg (26.0-34.0); MCHC 34.3 g/dL (28.0-37.0); MCV 101.4 fL (80.0-100.0); RBC 3.73 mil/uL (4.50-6.00); RDW 12.4 % (10.5-14.5); WBC 7.1 thou/uL (4.0-11.0)
[2021-04-10 05:36] LABS: CALCIUM 8.2 mg/dL (8.5-10.1); CREATININE 1.1 mg/dL (0.7-1.3); POTASSIUM 4.8 mmol/L (3.5-5.1)
[2021-04-10 07:16] VITALS: BP 133/51
[2021-04-10 09:52] VITALS: BP 133/51
--- NOTE | 2021-04-13 11:56 | CATHLAB ---
[facility] [place] [address] INVASIVE PROCEDURE REPORT Name: GWEN ADLER Room #: 211-P [facility] Tamia Henry#: [id number] Admission: 04/09/21 Attend Phys: Pawan Vaughan MD Discharge: 04/10/21 Date of : 32 Report #: [id number] THIS REPORT FOR: cc: Andre Mckeon MD, Rene P. MD Mancuso, Gerald M. MD [facility] ~ APPROVED REPORT Study performed: 04/09/2021 13:16:10 Patient Details Patient Status: Out-Patient Room #: The patient is a 89 year-old male Event Personnel Abran Murrell Biometrics Analyst, Franchesca Reyes RN RN, Mary Gonzalez RTR Scrub, Reyna Koo RTR, [employer] EXECUTIVE DIRECTOR Monitor Procedures Performed Art Access - R femoral artery* Yayo Access - R femoral vein Right heart cath w/Coronaries/SVGS Indication Dyspnea, Positive stress test Procedure Narrative The Right Groin^ was infiltrated with 1% Lidocaine subcutaneous anesthesia. A SHEATH BRITE-TIP 6F X 11CM ([id number]) sheath was inserted into the RFA. Coronary angiography was performed using coronary diagnostic catheters. The right coronary system was accessed and visualized with a JR4 catheter. The left coronary system was accessed and visualized with a JL4 catheter. An aortogram of the ascending aorta was performed. Closure device was deployed with a 6 Fr MYNX CONTROL 6F/7F L#[id number]. Hemostasis was obtained with manual pressure following sheath removal without any complications. The patient tolerated the procedure well and there were no complications associated with the procedure. There was no hematoma. 6F RCB catheter was used to access SVG of Diag/OM. 6F MPA 2 catheter was used to access SVG of PDA. Intraoperative Conscious Sedation Sedation start time: 11:56 Case end Time: 14:44 [facility] [place] [address] INVASIVE PROCEDURE REPORT Name: GWEN ADLER Room #: 211-P [facility] IN ..#: [id number] Admission: 04/09/21 Attend Phys: Pawan Vaughan, Discharge: 04/10/21 Date of : 32 Report #: [id number] Fentanyl 175 mcg Versed 3.5 mg Conscious sedation is a combined total of peripheral procedure and right and left heart cath. Contrast is a combined total of peripheral procedure and right and left heart cath. Visipaque total is 165ml. Fluoro time and dose is a combined total of peripheral procedure and right and left heart cath. Fluoro Time: 27.40 minutes Dose: DAP 63889.63 cGycm2 1754 mGy Contrast Type and Amount: Omnipaque 75 ml Hemodynamics The right atrial mean pressure is 10 mmHg. The right ventricular pressure is 41/3 mmHg. The pulmonary artery pressure is 39/8 mmHg with a mean of 23 mmHg. The mean pulmonary capillary wedge pressure is 17 mmHg. The aortic pressure is 163/63 mmHg with a mean of 99 mmHg. The cardiac output using thermo method is 4.45 L/min. The cardiac index using thermo method is 2.24 L/min/m2. PCI Technique Lesion Percutaneous coronary intervention was performed on the Distal sup femoral. PCI Technique Lesion 2 Percutaneous Coronary Intervention was performed on the Mid sup femoral. Conclusion #1 Successful right heart catheterization with cardiac output by thermodilution. See above hemodynamics. #2 supravalvular aortogram revealing normal caliber aorta mild aortic insufficiency. #3 left main occluded left system occluded #4 PAINTER to LAD is intact retrograde filling the LAD and diagonal system. Moderate disease in the LAD after the anastomosis. #5 the dominant RCA is subtotally occluded throughout the proximal and mid segment faint collateral filling of the distal RCA and PDA with competitive filling via a vein graft. #6 SVG to the PDA is intact retrograde filling the posterior lateral branch. There is moderate irregularity but no high-grade occlusion. This is providing some collateral filling to the distal OM. #7 SVG to OM occluded #8 SVG to probable second OM or diagonal occluded Recommendations and plan: Continue aggressive risk factor [facility] [address] [place] [address] INVASIVE PROCEDURE REPORT Name: GWEN ADLER Room #: 211-P [facility] IN M.R.#: [id number] Admission: 04/09/21 Attend Phys: Pawan Vaughan, Discharge: 04/10/21 Date of : 32 Report #: [id number] modification. No indication for coronary intervention. Recover CV holding discharge protocol. <ELECTRONICALLY SIGNED> By: Abran Murrell MD, FACC 04/13/21 1155 1155 1155 Abran Murrell MD, FACC /INF
== END 2021-04-10 11:50 | disposition home or self-care (01) ==
LOC: CATH 07:48 → 2N 15:27
PROVIDERS: ADMIT Internal Medicine Cardiovascular Disease; ATTEND Nuclear Medicine Nuclear Cardiology
DX: I73.9 Peripheral vascular disease, unspecified (principal); I10 Essential (primary) hypertension; E78.00 Pure hypercholesterolemia, unspecified; I70.211 Atherosclerosis of native arteries of extremities with intermittent claudication, right leg; I25.10 Atherosclerotic heart disease of native coronary artery without angina pectoris; I35.0 Nonrheumatic aortic (valve) stenosis; Z95.1 Presence of aortocoronary bypass graft; Z98.890 Other specified postprocedural states